=== PATIENT | female | born 1950 | race Native Hawaiian/Other Pacific Islander ===

== ENCOUNTER 2017-11-07 18:21 | Emergency (ER) | payer OTHER ==
[~2017-11-07] VITALS: Ht 162.6 cm; Wt 84.8 kg
[2017-11-07 18:33] VITALS: TEMP 98.7
[2017-11-07 21:32] VITALS: BP 149/84
== END 2017-11-07 21:33 | disposition home or self-care (01) ==
LOC: ED 18:21
PROC: 0HQ1XZZ Repair Face Skin, External Approach (ICD-10-PCS; principal; 2017-11-07)
DX: S01.81XA Laceration without foreign body of other part of head, initial encounter (principal); W18.39XA Other fall on same level, initial encounter; Y92.89 Other specified places as the place of occurrence of the external cause; S80.02XA Contusion of left knee, initial encounter
CPT/HCPCS: 12011; G0168; 90471; 90715; 99283

== ENCOUNTER 2018-02-12 14:43 | Outpatient (CLI) | payer OTHER | END 2018-02-12 20:58 | disposition home or self-care (01) | LOC: MAMMO 14:43 | DX: Z12.31 Encounter for screening mammogram for malignant neoplasm of breast (principal) ==

== ENCOUNTER 2020-07-01 09:53 | Outpatient (CLI) | payer OTHER | END 2020-07-01 21:06 | disposition home or self-care (01) | LOC: CT 09:53 | DX: D37.030 Neoplasm of uncertain behavior of the parotid salivary glands (principal) | CPT/HCPCS: Q9963 ==

== ENCOUNTER 2020-11-26 10:12 | Outpatient (CLI) | payer OTHER | END 2020-11-26 19:03 | disposition home or self-care (01) | LOC: MAMMO 10:12 | PROVIDERS: ATTEND Internal Medicine | DX: Z12.31 Encounter for screening mammogram for malignant neoplasm of breast (principal) ==